=== PATIENT | male | born 1995 | race Caucasian/White ===

== ENCOUNTER 2018-08-24 13:04 | Emergency (ER) | payer BC, OTHER ==
[2018-08-24 13:15] VITALS: BP 108/80; PULSE 90; RESP 20; TEMP 98.1
--- NOTE | 2018-08-24 14:58 | XR ---
EXAMINATION TYPE: XR KUB DATE OF EXAM: 08/24/2018 COMPARISON: NONE HISTORY: Check PEG tube placement TECHNIQUE: Single view FINDINGS: A single view of the abdomen was obtained with contrast injected into the PEG tube. There a ppears to be contrast in the stomach and with no extravasation. Contrast appears to be flowing up to the gastric fundus. IMPRESSION: PEG tube appears to be in good position in the stomach.
--- NOTE | 2018-08-24 15:14 | ED ---
General Adult HPI - General Chief complaint: Recheck/Abnormal Lab/Rx Stated complaint: Stephon Button fell out Time Seen by Provider: 08/24/18 13:22 Source: patient, RN notes reviewed, old records reviewed Mode of arrival: ambulatory Limitations: no limitations - History of Present Illness Initial comments: 23-year-old male with Down syndrome presents for PEG tube malfunction. Patient has a 14-Erit[place]an PEG tube and his parents noted that the balloon had ruptured. They've had an issue with this over the past weeks to months. They state that this tube was replaced proximally 6 days ago. The balloon was evaluated and ruptured. Patient has been tolerating feeds normally. No vomiting. Loose stools which is unchanged from baseline. No fever. - Related Data Home Medications Medication Instructions Recorded Confirmed Levothyroxine Sodium [Synthroid] 50 mcg PO DAILY 05/12/17 08/24/18 Topiramate [Topamax] 25 mg PO DAILY 05/12/17 08/24/18 Calcium Carbonate [Calcium] 300 mg PO DAILY 08/24/18 08/24/18 Multivitamins, Thera [Multivitamin 0.5 tab PO DAILY 08/24/18 08/24/18 (formulary)] Allergies Allergy/AdvReac Type Severity Reaction Status Date / Time No Known Allergies Allergy Verified 08/24/18 13:33 Review of Systems ROS Statement: Those systems with pertinent positive or pertinent negative responses have been documented in the HPI. ROS Other: All systems not noted in ROS Statement are negative. Past Medical History Past Medical History: Seizure Disorder, Thyroid Disorder Additional Past Medical History / Comment(s): down's syndrome History of Any Multi-Drug Resistant Organisms: None Reported Additional Past Surgical History / Comment(s): g-tube placement Past Psychological History: No Psychological Hx Reported Smoking Status: Never smoker Past Alcohol Use History: None Reported Past Drug Use History: None Reported General Exam Limitations: no limitations General appearance: alert, in no apparent distress Head exam: Present: atraumatic, normocephalic ENT exam: Present: mucous membranes moist Respiratory exam: Present: normal lung sounds bilaterally. Absent: respiratory distress Cardiovascular Exam: Present: regular rate, normal rhythm GI/Abdominal exam: Present: soft, other (Mild erythema surrounding the PEG tube site). Absent: distended, tenderness Course Vital Signs 08/24/18 13:10 Temperature 98.1 F Pulse Rate 90 Respiratory 20 Rate Blood Pressure 108/80 O2 Sat by Pulse 98 Oximetry Medical Decision Making - Medical Decision Making PEG tube replaced in the emergency department with 14-Eritrean MENRA tube confirmed with G[facility]rogra[facility] x-ray. Case discussed with patient's general surgeon Dr. James regarding the frequency of PEG tube issues. He will see the patient this week. Disposition Clinical Impression: PEG tube malfunction Disposition: HOME SELF-CARE Condition: Good Instructions: How to Use and Care for Your PEG Tube (ED) Is patient prescribed a controlled substance at d/c from ED?: No Referrals: Iam Holman DO [Primary Care Provider] - 1-2 days Damian Persaud MD [Medical Doctor] - 1-2 days Time of Disposition: 15:13
== END 2018-08-24 16:07 | disposition home or self-care (01) ==
LOC: EC 13:04
DX: K94.23 Gastrostomy malfunction (principal); G40.909 Epilepsy, unspecified, not intractable, without status epilepticus; E07.9 Disorder of thyroid, unspecified; Z79.890 Hormone replacement therapy; Z79.899 Other long term (current) drug therapy
CPT/HCPCS: 99283; 43762; 74018; Q9967

== ENCOUNTER → 2018-10-23 | Outpatient (CLI) | payer BC, OTHER ==
--- NOTE | 2018-10-24 18:50 | ECHOF ---
Referral Reason:R09.89 feet swelling, Q90.9 Down syndrome MEASUREMENTS -------- HEIGHT: 132.1 cm WEIGHT: 26.3 kg BP: RVIDd: 2.9 cm (< 3.3) IVSd: 0.9 cm (0.6 - 1.1) LVIDd: 3.5 cm (3.9 - 5.3) LVPWd: 0.8 cm (0.6 - 1.1) IVSs: 1.2 cm LVIDs: 1.8 cm LVPWs: 1.4 cm LA Diam: 2.4 cm (2.7 - 3.8) Ao Diam: 2.3 cm (2.0 - 3.7) AV Cusp: 1.8 cm (1.5 - 2.6) MV EXCURSION: 19.523 mm (> 18.000) MV EF SLOPE: 94 mm/s (70 - 150) EPSS: 0.2 cm MV E Sea: 0.79 m/s MV DecT: 132 ms MV A Sea: 0.43 m/s MV E/A Ratio: 1.85 RAP: 5.00 mmHg RVSP: 27.89 mmHg FINDINGS -------- Sinus rhythm. This was a technically adequate study. The left ventricular size is normal. Left ventricular wall thickness is normal. Overall left vent ricular systolic function is normal with, an EF between 55 - 60 %. The right ventricle is normal in size. The left atrial size is normal. The right atrium is normal in size. The aortic valve is trileaflet and appears structurally normal. Trace to mild aortic regurgitation. The mitral valve is normal. There is trace to mild mitral regurgitation. Mild tricuspid regurgitation present. Right ventricular systolic pressure is normal at < 35 mmHg. There is no pulmonic regurgitation present. The aortic root size is normal. IVC Not well visulized. There is a small pericardial effusion located near the left ventricle. CONCLUSIONS -------- 1. Sinus rhythm. 2. This was a technically adequate study. 3. The left ventricular size is normal. 4. Left ventricular wall thickness is normal. 5. Overall left ventricular systolic function is normal with, an EF between 55 - 60 %. 6. The right ventricle is normal in size. 7. The left atrial size is normal. 8. The right atrium is normal in size. 9. The aortic valve is trileaflet and appears structurally normal. 10. Trace to mild aortic regurgitation. 11. The mitral valve is normal. 12. There is trace to mild mitral regurgitation. 13. Mild tricuspid regurgitation present. 14. Right ventricular systolic pressure is normal at < 35 mmHg. 15. There is no pulmonic regurgitation present. 16. The aortic root size is normal. 17. IVC Not well visulized. 18. There is a small pericardial effusion located near the left ventricle. CAKE WASHER: Rukhsana Cradona RDCS
== END | disposition home or self-care (01) ==
LOC: RADECHMAIN 11:14 → EEVIPCON 11:14
PROVIDERS: ATTEND Family Medicine
DX: I08.3 Combined rheumatic disorders of mitral, aortic and tricuspid valves (principal); I31.3 Pericardial effusion (noninflammatory); Q90.9 Down syndrome, unspecified; R09.89 Other specified symptoms and signs involving the circulatory and respiratory systems
CPT/HCPCS: 93306; 93922

== ENCOUNTER 2019-04-07 20:05 | Emergency (ER) | payer BC, OTHER ==
--- NOTE | 2019-04-07 21:03 | ED ---
General Adult HPI - General Chief complaint: Nausea/Vomiting/Diarrhea Stated complaint: Losing Weight, Weakness Time Seen by Provider: 04/07/19 20:23 Source: family Mode of arrival: ambulatory Limitations: no limitations - History of Present Illness Initial comments: 24-year-old male patient who is a past medical history significant for Down syndrome with G-tube presents to the emergency department today for evaluation of weight loss. Parents state that patient has lost approximately 10-20 pounds over the last several months. States that the school nurse (who has cared for him for several years) saw him today and his first day of school and felt that he looked very thin, pale, and was not behaving per usual. Parent states that patient is eating a usual amount. States he eats 2 meals per day, has an ensure when he gets home from school, and 3 cans of ensure throughout the night. They state that this has not changed. States that he has had an increase in dosage of his thyroid medication over the last 5-6 months. States that he has recently been evaluated by a GI specialist for weight loss. States they did a colonoscopy and found him to have colitis. He is currently on a steroid regimen which has improved his diarrhea. They believe that patient is behaving normally. They deny any new symptoms. He is not vomiting and does not seem to be in pain. They deny fever or chills. - Related Data Home Medications Medication Instructions Recorded Confirmed Topiramate [Topamax] 25 mg PO DAILY 05/12/17 04/07/19 Albuterol Nebulized [Ventolin 2.5 mg INHALATION RT-QID PRN 04/07/19 04/07/19 Nebulized] Budesonide [Budesonide EC] 9 mg PO DAILY 04/07/19 04/07/19 Fluticasone Propionate [Flonase 1 spray EA NOSTRIL BID PRN 04/07/19 04/07/19 Allergy Relief] Hydrocortisone Cream 1 applic TOPICAL TID 04/07/19 04/07/19 [Hydrocortisone 2.5% Cream] Levothyroxine Sodium [Synthroid] 100 mcg PO DAILY 04/07/19 04/07/19 Mupirocin [Mupirocin 2%] 1 applic TOPICAL DAILY 04/07/19 04/07/19 Nystatin 100,000Unit/gm Cream 1 applic TOPICAL DAILY 04/07/19 04/07/19 [Mycostatin Cream] Triamcinolone 0.025% Cream 1 applic TOPICAL DAILY 04/07/19 04/07/19 [Kenalog 0.025% Cream] Allergies Allergy/AdvReac Type Severity Reaction Status Date / Time No Known Allergies Allergy Verified 04/07/19 20:52 Review of Systems ROS Statement: Those systems with pertinent positive or pertinent negative responses have been documented in the HPI. ROS Other: All systems not noted in ROS Statement are negative. Past Medical History Past Medical History: Seizure Disorder, Thyroid Disorder Additional Past Medical History / Comment(s): down's syndrome History of Any Multi-Drug Resistant Organisms: None Reported Additional Past Surgical History / Comment(s): g-tube placement Past Psychological History: No Psychological Hx Reported Smoking Status: Never smoker Past Alcohol Use History: None Reported Past Drug Use History: None Reported General Exam Limitations: language barrier (nonverbal) General appearance: alert, in no apparent distress, cachectic, other (This is a under developed, thin appearing 24-year-old male patient in no acute distress. Vital signs upon presentation are temperature 98.3F, pulse 102, respirations 20, blood pressure 109/75, pulse ox 98% on room air.) Eye exam: Present: normal appearance, PERRL, EOMI. Absent: scleral icterus, conjunctival injection, periorbital swelling ENT exam: Present: normal exam, normal oropharynx, mucous membranes moist Respiratory exam: Present: normal lung sounds bilaterally. Absent: respiratory distress, wheezes, rales, rhonchi, stridor Cardiovascular Exam: Present: regular rate, normal rhythm, normal heart sounds. Absent: systolic murmur, diastolic murmur, rubs, gallop, clicks GI/Abdominal exam: Present: soft, normal bowel sounds. Absent: distended, tenderness, guarding, rebound, rigid Neurological exam: Present: alert Psychiatric exam: Present: normal affect Skin exam: Present: warm, dry, intact, normal color. Absent: rash Course Vital Signs 04/07/19 04/07/19 20:07 22:48 Temperature 98.3 F 98.0 F Pulse Rate 102 H 87 Respiratory 20 18 Rate Blood Pressure 109/75 110/87 O2 Sat by Pulse 98 99 Oximetry Medical Decision Making - Medical Decision Making 24-year-old male patient with past medical history significant for Down's syndrome presents to the emergency department today for evaluation of weight loss over the last several months. Physical examination reveals a thin appearing, cachectic male patient. Exam is otherwise unremarkable. Abdomen is soft and nontender. Vital signs are stable. Labs reviewed and shows some evidence for malnutrition but nothing really significant. He'll be discharged home to follow-up with the primary care physician and her student services dean for further evaluation. Return parameters were discussed in detail. They verbalize understanding and agree with this plan. - Lab Data Result diagrams: 04/07/19 21:21 04/07/19 21:21 Lab Results 04/07/19 04/07/19 04/07/19 Range/Units 21:21 21:21 21:21 WBC 16.6 H (3.8-10.6) k/uL RBC 4.65 (4.30-5.90) m/uL Hgb 13.5 (13.0-17.5) gm/dL Hct 41.8 (39.0-53.0) % MCV 89.9 (80.0-100.0) fL MCH 29.0 (25.0-35.0) pg MCHC 32.2 (31.0-37.0) g/dL RDW 16.5 H (11.5-15.5) % Plt Count 388 (150-450) k/uL Neutrophils % 79 % Lymphocytes % 10 % Monocytes % 7 % Eosinophils % 2 % Basophils % 1 % Neutrophils # 13.1 H (1.3-7.7) k/uL Lymphocytes # 1.6 (1.0-4.8) k/uL Monocytes # 1.2 H (0-1.0) k/uL Eosinophils # 0.3 (0-0.7) k/uL Basophils # 0.2 (0-0.2) k/uL Anisocytosis Slight Sodium 131 L (137-145) mmol/L Potassium 3.9 (3.5-5.1) mmol/L Chloride 96 L (98-107) mmol/L Carbon Dioxide 30 (22-30) mmol/L Anion Gap 5 mmol/L BUN 12 (9-20) mg/dL Creatinine 0.35 L (0.66-1.25) mg/dL Est GFR (CKD-EPI)AfAm >90 (>60 ml/min/1.73 sqM) Est GFR (CKD-EPI)NonAf >90 (>60 ml/min/1.73 sqM) Glucose 86 (74-99) mg/dL Calcium 8.0 L (8.4-10.2) mg/dL Total Bilirubin 0.1 L (0.2-1.3) mg/dL AST 20 (17-59) U/L ALT 13 L (21-72) U/L Alkaline Phosphatase 108 (38-126) U/L Total Protein 8.3 H (6.3-8.2) g/dL Albumin 3.0 L (3.5-5.0) g/dL Amylase 115 H (30-110) U/L Lipase 164 (23-300) U/L TSH 4.620 (0.465-4.680) mIU/L Urine Color Light Yellow Urine Appearance Cloudy (Clear) Urine pH 7.5 (5.0-8.0) Ur Specific [place] 1.009 (1.001-1.035) Urine Protein Negative (Negative) Urine Glucose (UA) Negative (Negative) Urine Ketones Negative (Negative) Urine Blood Negative (Negative) Urine Nitrite Negative (Negative) Urine Bilirubin Negative (Negative) Urine Urobilinogen <2.0 (<2.0) mg/dL Ur Leukocyte Esterase Negative (Negative) Urine RBC 1 (0-5) /hpf Urine WBC 2 (0-5) /hpf Ur Squamous Epith Cells 1 (0-4) /hpf Amorphous Sediment Occasional H (None) /hpf Urine Mucus Rare H (None) /hpf Disposition Clinical Impression: Weight loss, unintentional Disposition: HOME SELF-CARE Condition: Good Instructions (If sedation given, give patient instructions): Malnutrition (DC) Additional Instructions: Follow-up with your primary care physician for recheck as soon as possible. Continue following with the GI specialist for further evaluation of this weight loss. Return to the emergency department immediately for any new, worsening, or concerning symptoms. Is patient prescribed a controlled substance at d/c from ED?: No Referrals: Iam Holman DO [Primary Care Provider] - 1-2 days Time of Disposition: 22:14
[2019-04-07 21:33] LABS: Anisocytosis Slight; Basophils # (A) 0.2 k/uL (0-0.2); Basophils % (A) 1 %; Eosinophils # (A) 0.3 k/uL (0-0.7); Eosinophils % (A) 2 %; HCT 41.8 % (39.0-53.0); HGB 13.5 gm/dL (13.0-17.5); Lymphocytes # (A) 1.6 k/uL (1.0-4.8); Lymphocytes % (A) 10 %; MCHC 32.2 g/dL (31.0-37.0); MCV 89.9 fL (80.0-100.0); Mean Platelet Volume 6.3; Monocytes # (A) 1.2 k/uL (0-1.0); Monocytes % (A) 7 %; Neutrophils # (A) 13.1 k/uL (1.3-7.7); Neutrophils % (A) 79 %; Platelet Count 388 k/uL (150-450); RBC 4.65 m/uL (4.30-5.90); RDW 16.5 % (11.5-15.5); WBC 16.6 k/uL (3.8-10.6)
[2019-04-07 21:41] LABS: ALT 13 U/L (21-72); AST 20 U/L (17-59); African American GFR (CKD) >90 (>60 ml/min/1.73 sqM); Alkaline Phosphatase 108 U/L (38-126); Amylase 115 U/L (30-110); Anion Gap 5 mmol/L; Blood Urea Nitrogen 12 mg/dL (9-20); Carbon Dioxide 30 mmol/L (22-30); Chloride 96 mmol/L (98-107); Glucose 86 mg/dL (74-99); Potassium 3.9 mmol/L (3.5-5.1); Sodium 131 mmol/L (137-145); Total Bilirubin 0.1 mg/dL (0.2-1.3); Total Protein 8.3 g/dL (6.3-8.2)
[2019-04-07 22:07] LABS: Amorphous Sediment,Urine Occasional /hpf; Appearance,Urine Cloudy (Clear); Bilirubin,Urine Negative (Negative); Blood,Urine Negative (Negative); Color,Urine Light Yellow; Glucose,Urine (UA) Negative (Negative); Ketones,Urine Negative (Negative); Leukocyte Esterase,Urine Negative (Negative); Mucus,Urine Rare /hpf; Nitrite,Urine Negative (Negative); PH, Urine 7.5 (5.0-8.0); Protein,Urine Negative (Negative); RBC,Urine 1 /hpf (0-5); Specific Gravity,Urine 1.009 (1.001-1.035); Squamous Epithelial Cell,Urine 1 /hpf (0-4); Urobilinogen,Urine <2.0 mg/dL (<2.0); WBC,Urine 2 /hpf (0-5)
[2019-04-07 22:49] VITALS: BP 110/87; PULSE 87; RESP 18; TEMP 98
== END 2019-04-07 22:49 | disposition home or self-care (01) ==
LOC: EC 20:05
DX: R63.4 Abnormal weight loss (principal); Z68.1 Body mass index [BMI] 19.9 or less, adult; R53.1 Weakness; R19.7 Diarrhea, unspecified; G40.909 Epilepsy, unspecified, not intractable, without status epilepticus; E07.9 Disorder of thyroid, unspecified; Z79.890 Hormone replacement therapy; Z79.899 Other long term (current) drug therapy
CPT/HCPCS: 36415; 80053; 81001; 82150; 83690; 84443; 85025; 99284

== ENCOUNTER 2019-10-01 11:35 | Inpatient (IN) | payer MEDICARE, OTHER ==
[2019-10-07 09:45] VITALS: BMI 17.2
[2019-10-07 23:04] VITALS: BP 113/80
[2019-10-08 04:16] VITALS: RESP 19; TEMP 97.8
[2019-10-08 06:19] VITALS: PULSE 82
== END 2019-10-08 11:17 | disposition expired | DRG 870 ==
LOC: EC 11:35 → 2SICU 12:49
PROVIDERS: ADMIT Hospitalist; ATTEND Hospitalist
PROC: 5A1955Z Respiratory Ventilation, Greater than 96 Consecutive Hours (ICD-10-PCS; principal; 2019-10-01)
PROC: 0BH17EZ Insertion of Endotracheal Airway into Trachea, Via Natural or Artificial Opening (ICD-10-PCS; 2019-10-01)
PROC: 0D9670Z Drainage of Stomach with Drainage Device, Via Natural or Artificial Opening (ICD-10-PCS; 2019-10-01)
PROC: 06HM33Z Insertion of Infusion Device into Right Femoral Vein, Percutaneous Approach (ICD-10-PCS; 2019-10-01)
PROC: 04HY32Z Insertion of Monitoring Device into Lower Artery, Percutaneous Approach (ICD-10-PCS; 2019-10-01)
PROC: 4A133B1 Monitoring of Arterial Pressure, Peripheral, Percutaneous Approach (ICD-10-PCS; 2019-10-01)
PROC: 4A133J1 Monitoring of Arterial Pulse, Peripheral, Percutaneous Approach (ICD-10-PCS; 2019-10-01)
PROC: 0B9K8ZX Drainage of Right Lung, Via Natural or Artificial Opening Endoscopic, Diagnostic (ICD-10-PCS; 2019-10-01)
PROC: 3E0G76Z Introduction of Nutritional Substance into Upper GI, Via Natural or Artificial Opening (ICD-10-PCS; 2019-10-02)
PROC: 0B9M8ZX Drainage of Bilateral Lungs, Via Natural or Artificial Opening Endoscopic, Diagnostic (ICD-10-PCS; 2019-10-04)
DX: A41.3 Sepsis due to Hemophilus influenzae (principal); J69.0 Pneumonitis due to inhalation of food and vomit; J96.01 Acute respiratory failure with hypoxia; J96.02 Acute respiratory failure with hypercapnia; G93.41 Metabolic encephalopathy; R65.21 Severe sepsis with septic shock; E43 Unspecified severe protein-calorie malnutrition; J14 Pneumonia due to Hemophilus influenzae; J47.0 Bronchiectasis with acute lower respiratory infection; T17.890A Other foreign object in other parts of respiratory tract causing asphyxiation, initial encounter; F72 Severe intellectual disabilities; E87.4 Mixed disorder of acid-base balance; E87.1 Hypo-osmolality and hyponatremia; J98.19 Other pulmonary collapse; Z68.1 Body mass index [BMI] 19.9 or less, adult; L89.152 Pressure ulcer of sacral region, stage 2; I50.9 Heart failure, unspecified; Z66 Do not resuscitate; R32 Unspecified urinary incontinence; E87.6 Hypokalemia; R13.10 Dysphagia, unspecified; Q90.9 Down syndrome, unspecified; R15.9 Full incontinence of feces; G40.909 Epilepsy, unspecified, not intractable, without status epilepticus; M41.9 Scoliosis, unspecified; J45.909 Unspecified asthma, uncomplicated; E03.9 Hypothyroidism, unspecified; J98.4 Other disorders of lung; H10.9 Unspecified conjunctivitis; K21.9 Gastro-esophageal reflux disease without esophagitis; Z93.1 Gastrostomy status; Z71.3 Dietary counseling and surveillance; Z79.890 Hormone replacement therapy; Z79.899 Other long term (current) drug therapy; Z87.01 Personal history of pneumonia (recurrent); Z82.5 Family history of asthma and other chronic lower respiratory diseases; Z82.49 Family history of ischemic heart disease and other diseases of the circulatory system
CPT/HCPCS: 31500; 31624; 36415; 36600; 51702; 71045; 71260; 80048; 80053; 82803; 82805; 83605; 83735; 83880; 84132; 84484; 85025; 85610; 85730; 86850; 86900; 86901; 87040; 87070; 87102; 87116; 87205; 87206; 87252; 87496; 87498; 87502; 87529; 87581; 87634; 87798; 89050; 93005; 93306; 94002; 94003; 94640; 94660; 96361; 96374; 99291